=== PATIENT | female | born 1960 | race Caucasian/White ===

== ENCOUNTER → 2016-10-22 | Outpatient (CLI) | payer OTHER ==
--- NOTE | 2016-10-23 11:11 | MM ---
Reason for exam: screening (asymptomatic). Last mammogram was performed 1 year ago. History: Patient is postmenopausal. Physical Findings: A clinical breast exam by your physician is recommended on an annual basis and results should be correlated with mammographic findings. MG 3D Screening Mammo W/Cad Bilateral CC and MLO view(s) were taken. Prior study comparison: October 10, 2015, bilateral MG screening mammo w CAD. September 27, 2014, bilateral MG screening mammo w CAD. There are scattered fibroglandular densities. No significant changes when compared with prior studies. ASSESSMENT: Benign, BI-RAD 2 RECOMMENDATION: Routine screening mammogram of both breasts in 1 year.
== END | disposition home or self-care (01) ==
LOC: RADMAMWWP 08:41
PROVIDERS: ATTEND Obstetrics & Gynecology
DX: Z12.31 Encounter for screening mammogram for malignant neoplasm of breast (principal)
CPT/HCPCS: 77063; G0202

== ENCOUNTER → 2017-11-18 | Outpatient (CLI) | payer OTHER ==
--- NOTE | 2017-11-18 11:37 | BD ---
EXAMINATION TYPE: MG DEXA axial skeleton. DATE OF EXAM: 11/18/2017 COMPARISON: NONE CLINICAL HISTORY: Height: 61 Weight: 154.7 FRAX RISK QUESTIONS: Alcohol (3 or more units per day): no Family History (Parent hip fracture): yes Glucocorticoids (More than 3mos): no (Ex: prednisone, prednisolone, methylprednisolone, dexamethasone, and hydrocortisone). History of Fracture in Adulthood: yes Secondary Osteoporosis: 1. Type 1 Diabetes: no 2. Hyperthyroidism: no 3. Menopause before 45: yes 4. Malnutrition: no 5. Chronic liver disease: no Rheumatoid Arthritis: no Current Tobacco Use: no RISK FACTORS HISTORY OF: Surgery to Spine/Hip(right/left)/Wrist (right/left): c-spine When: 2006 Family History of Osteoporosis: yes Active: yes Diet low in dairy products/other sources of calcium: yes Postmenopausal woman: age45 Lost more than 2 inches in height since high school: no Frequent falls: no Poor Health: no Hyperparathyroidism: no Adrenal Insufficiency: no MEDICATIONS: blood pressure Additional History: EXAM MEASUREMENTS: Bone mineral densitometry was performed using the [employer] System. Bone mineral density as measured about the Lumbar spine is: ----- L1-L4(G/cm2): 1.063 T Score Values are as follows: ----- L2: -1.4 ----- L3: -1.4 ----- L4: -0.6 ----- L1-L4: -1.0 Bone mineral density has: decreased -4.5 % since study of: 09.27.2014 Bone mineral density about the R hip (g/cm2): 0.857 Bone mineral density about the L hip (g/cm2): 0.818 T Score values are as follows: -----R Neck: -1.3 -----L Neck: -1.6 -----R Total: -0.0 -----L Total: -0.1 Bone mineral density has: decreased -2.6 % since study of: 09.27.2014 IMPRESSION: No evidence for osteoporosis or osteopenia. NOTE: T-SCORE=SD OF THE YOUNG ADULT MEAN.
--- NOTE | 2017-11-19 08:59 | MM ---
Reason for exam: screening (asymptomatic). Last mammogram was performed 1 year and 1 month ago. History: Patient is postmenopausal. Physical Findings: A clinical breast exam by your physician is recommended on an annual basis and results should be correlated with mammographic findings. MG 3D Screening Mammo W/Cad Bilateral CC and MLO view(s) were taken. Prior study comparison: October 22, 2016, bilateral MG 3d screening mammo w/cad. October 10, 2015, bilateral MG screening mammo w CAD. There are scattered fibroglandular densities. There is chronic nodularity bilaterally. There is no dominant lesion. No significant changes when compared with prior studies. ASSESSMENT: Benign, BI-RAD 2 RECOMMENDATION: Routine screening mammogram of both breasts in 1 year.
== END | disposition home or self-care (01) ==
LOC: RADMAMWWP 06:56
PROVIDERS: ATTEND Obstetrics & Gynecology
DX: Z12.31 Encounter for screening mammogram for malignant neoplasm of breast (principal); M85.80 Other specified disorders of bone density and structure, unspecified site; M89.9 Disorder of bone, unspecified
CPT/HCPCS: 77063; 77067; 77080

== ENCOUNTER → 2018-12-31 | Outpatient (CLI) | payer BC ==
--- NOTE | 2019-01-03 11:48 | MM ---
Reason for exam: screening (asymptomatic). Last mammogram was performed 1 year and 1 month ago. History: Patient is postmenopausal. Physical Findings: A clinical breast exam by your physician is recommended on an annual basis and results should be correlated with mammographic findings. MG 3D Screening Mammo W/Cad Bilateral CC and MLO view(s) were taken. Prior study comparison: November 18, 2017, bilateral MG 3d screening mammo w/cad. October 22, 2016, bilateral MG 3d screening mammo w/cad. There are scattered fibroglandular densities. Finding: There are typically benign dystrophic calcifications in the axilla position of the left breast. There is a chronic nodularity bilaterally. There is no discrete abnormality. ASSESSMENT: Benign, BI-RAD 2 RECOMMENDATION: Routine screening mammogram of both breasts in 1 year.
== END | disposition home or self-care (01) ==
LOC: RADMAMWWP 10:00
PROVIDERS: ATTEND Obstetrics & Gynecology
DX: Z12.31 Encounter for screening mammogram for malignant neoplasm of breast (principal)
CPT/HCPCS: 77063; 77067

== ENCOUNTER → 2020-05-04 | Outpatient (CLI) | payer BC ==
--- NOTE | 2020-05-07 09:39 | MM ---
Reason for exam: screening (asymptomatic). Last mammogram was performed 1 year and 4 months ago. History: Patient is postmenopausal. Physical Findings: A clinical breast exam by your physician is recommended on an annual basis and results should be correlated with mammographic findings. MG 3D Screening Mammo W/Cad Bilateral CC and MLO view(s) were taken. Prior study comparison: December 31, 2018, bilateral MG 3d screening mammo w/cad. November 18, 2017, bilateral MG 3d screening mammo w/cad. The breast tissue is heterogeneously dense. This may lower the sensitivity of mammography. Focal asymmetry upper outer left breast. This finding is changed when compared with previous exams. ASSESSMENT: Incomplete: need additional imaging evaluation, BI-RAD 0 RECOMMENDATION: Special view mammogram of the left breast. If lesion persists on supplemental views, image directed ultrasound is recommended. [facility] will attempt to contact patient to return for supplemental views and ultrasound if indicated.
== END | disposition home or self-care (01) ==
LOC: RADMAMWWP 08:44
PROVIDERS: ATTEND Obstetrics & Gynecology
DX: Z12.31 Encounter for screening mammogram for malignant neoplasm of breast (principal)
CPT/HCPCS: 77063; 77067

== ENCOUNTER → 2020-05-11 | Outpatient (CLI) | payer BC ==
--- NOTE | 2020-05-14 07:50 | MM ---
Reason for exam: additional evaluation requested from abnormal screening. Last mammogram was performed less than 1 month ago. History: Patient is postmenopausal. Physical Findings: Nurse did not find any significant physical abnormalities on exam. MG 3D Work Up W/Cad LT Spot compression CC and spot compression MLO view(s) were taken of the left breast. Prior study comparison: May 04, 2020, bilateral MG 3d screening mammo w/cad. December 31, 2018, bilateral MG 3d screening mammo w/cad. The breast tissue is heterogeneously dense. This may lower the sensitivity of mammography. Benign appearing calcifications in the left breast. There is chronic nodularity in the left breast. These results were verbally communicated with the patient and result sheet given to the patient on 05/11/20. ASSESSMENT: Probably benign, BI-RAD 3 RECOMMENDATION: Follow-up diagnostic mammogram of the left breast in 6 months.
== END | disposition home or self-care (01) ==
LOC: RADMAMWWP 14:30
PROVIDERS: ATTEND Obstetrics & Gynecology
DX: R92.8 Other abnormal and inconclusive findings on diagnostic imaging of breast (principal)
CPT/HCPCS: 77061; 77065

== ENCOUNTER → 2020-11-23 | Outpatient (CLI) | payer OTHER ==
--- NOTE | 2020-11-23 12:08 | MM ---
Reason for exam: follow-up at short interval from prior study. Last mammogram was performed 6 months ago. History: Patient is postmenopausal. Physical Findings: Nurse did not find any significant physical abnormalities on exam. MG 3D Diag Mammo W/Cad LT CC and MLO view(s) were taken of the left breast. Prior study comparison: May 11, 2020, left breast MG 3d work up w/cad LT. May 04, 2020, bilateral MG 3d screening mammo w/cad. The breast tissue is heterogeneously dense. This may lower the sensitivity of mammography. There is chronic nodularity in the left breast. No significant new findings when compared with previous films. These results were verbally communicated with the patient and result sheet given to the patient on 11/23/20. ASSESSMENT: Benign, BI-RAD 2 RECOMMENDATION: Return to routine screening mammogram schedule for both breasts. Back on schedule.
== END ==
LOC: RADMAMWWP 09:13
PROVIDERS: ATTEND Obstetrics & Gynecology
DX: R92.8 Other abnormal and inconclusive findings on diagnostic imaging of breast (principal); Z78.0 Asymptomatic menopausal state
CPT/HCPCS: 77061; 77065

== ENCOUNTER → 2021-06-14 | Outpatient (CLI) | payer OTHER ==
--- NOTE | 2021-06-17 09:38 | MM ---
Reason for exam: screening (asymptomatic). Last mammogram was performed 7 months ago. History: Patient is postmenopausal. Physical Findings: A clinical breast exam by your physician is recommended on an annual basis and results should be correlated with mammographic findings. MG 3D Screening Mammo W/Cad Bilateral CC and MLO view(s) were taken. Prior study comparison: November 23, 2020, left breast MG 3d diag mammo w/cad LT. May 11, 2020, left breast MG 3d work up w/cad LT. May 04, 2020, bilateral MG 3d screening mammo w/cad. There are scattered fibroglandular densities. There is chronic nodularity bilaterally. There is no discrete abnormality. ASSESSMENT: Benign, BI-RAD 2 RECOMMENDATION: Routine screening mammogram of both breasts in 1 year.
== END | disposition home or self-care (01) ==
LOC: RADMAMWWP 08:49
PROVIDERS: ATTEND Obstetrics & Gynecology
DX: Z12.31 Encounter for screening mammogram for malignant neoplasm of breast (principal); Z78.0 Asymptomatic menopausal state
CPT/HCPCS: 77063; 77067

== ENCOUNTER → 2022-07-04 | Outpatient (CLI) | payer OTHER ==
--- NOTE | 2022-07-04 12:18 | BD ---
EXAMINATION TYPE: Axial Bone Density DATE OF EXAM: 07/04/2022 COMPARISON: 11.18.2017 CLINICAL HISTORY: 62 years year old Female. ICD-10 CODE: M85.88 DISORDER OF BONE Height: 60.5 Weight: 168 FRAX RISK QUESTIONS: Secondary Osteoporosis: YES 3. Menopause before 45: YES RISK FACTORS HISTORY OF: Diet low in dairy products/other sources of calcium: YES Postmenopausal woman: YES, AT AGE 41 YRS OLD Hyperparathyroidism: NO Adrenal Insufficiency: NO MEDICATIONS: Additional Medications: BP MEDS, XANAX, REFLUX MEDS, MULTIVITAMIN, MOTRIN 800MG Additional History: RECENT FOOT SURG FOR SPURS AND BUNION, ARTHRITIS, EXAM MEASUREMENTS: Bone mineral densitometry was performed using the [email or web address] System. Bone mineral density as measured about the Lumbar spine is: ----- L1-L4(G/cm2): 1.109 T Score Values are as follows: ----- L1: -0.3 ----- L2: -0.8 ----- L3: -1.0 ----- L4: -0.4 ----- L1-L4: -0.6 Bone mineral density has: Increased 4.3% since study of: 11.18.2017 Bone mineral density about the R hip (g/cm2): 0.981 Bone mineral density about the L hip (g/cm2): 0.978 T Score values are as follows: -----R Neck: -1.4 -----L Neck: -1.6 -----R Total: -0.2 -----L Total: -0.2 Bone mineral density has: Decreased -1.7% since study of: 11.18.2017 FRAX%s: The graph provided illustrates a 13.7% chance for a major osteoporotic fx and a 1.3% chance f or the hips probability for fx in 10 years time. IMPRESSION: Osteopenia (T Score between -2.5 and -1). There is slightly increased risk of fracture and the patient may be considered for treatment. Re-Screen 2-5 years. NOTE: T-SCORE=SD OF THE YOUNG ADULT MEAN.
--- NOTE | 2022-07-07 08:00 | MM ---
Reason for Exam: Screening (asymptomatic). Last mammogram was performed 1 year(s) and 1 month(s) ago. Patient History: Menarche at age 12. First Full-Term at age 19. Left ovary removed at age 45. Right ovary removed at age 45. Hysterectomy at age 45. Postmenopausal. Risk Values: Lisa 5 year model risk: 1.2%. NCI Lifetime model risk: 5.7%. Prior Study Comparison: 05/11/2020 Left Diagnostic Mammogram, [facility]. 11/23/2020 Left Diagnostic Mammogram, [facility]. 06/14/2021 Bilateral Screening Mammogram, [facility]. Tissue Density: There are scattered fibroglandular densities. Findings: Analyzed By CAD. There is no suspicious group of microcalcifications or new suspicious mass in either breast. Chronic nodularity bilaterally. No significant change from prior exams. Overall Assessment: Benign, BI-RAD 2 Management: Screening Mammogram of both breasts in 1 year. A clinical breast exam by your physician is recommended on an annual basis and results should be correlated with mammographic findings. Electronically signed and approved by: Bacilio Matthew D.O.
== END | disposition home or self-care (01) ==
LOC: RADMAMWWP 07:26
PROVIDERS: ATTEND Obstetrics & Gynecology
DX: Z12.31 Encounter for screening mammogram for malignant neoplasm of breast (principal); M85.89 Other specified disorders of bone density and structure, multiple sites; Z78.0 Asymptomatic menopausal state
CPT/HCPCS: 77063; 77067; 77080

== ENCOUNTER → 2023-07-17 | Outpatient (CLI) | payer OTHER ==
--- NOTE | 2023-07-17 12:36 | MM ---
Reason for Exam: Screening (asymptomatic). Last screening mammogram was performed 12 month(s) ago. Patient History: Menarche at age 12. First Full-Term at age 19. Left ovary removed at age 45. Right ovary removed at age 45. Hysterectomy at age 45. Postmenopausal. Risk Values: Lisa 5 year model risk: 1.2%. NCI Lifetime model risk: 5.5%. Prior Study Comparison: 11/23/2020 Left Diagnostic Mammogram, [facility]. 06/14/2021 Bilateral Screening Mammogram, [facility]. 07/04/2022 Bilateral MG 3D screening mammo w/cad, [facility]. Tissue Density: There are scattered fibroglandular densities. Findings: Analyzed By CAD. There is no suspicious group of microcalcifications or new suspicious mass in either breast. Stable chronic nodularity within both breasts. Overall Assessment: Benign, BI-RAD 2 Management: Screening Mammogram of both breasts in 1 year. A clinical breast exam by your physician is recommended on an annual basis and results should be correlated with mammographic findings. Note on Lisa scores and lifetime risk: 1. A Lisa score greater than 3% is considered moderate risk. If this is the case, consider specialist referral to assess eligibility for a risk reducing agent. If overall lifetime risk for the development of breast cancer is 20% or higher, the patient may qualify for future screening with alternating mammogram and breast MRI. Electronically signed and approved by: Bacilio Matthew D.O.
== END | disposition home or self-care (01) ==
LOC: RADMAMWWP 12:13
PROVIDERS: ATTEND Obstetrics & Gynecology
DX: Z12.31 Encounter for screening mammogram for malignant neoplasm of breast (principal); Z78.0 Asymptomatic menopausal state
CPT/HCPCS: 77063; 77067